=== PATIENT | female | born 1990 | race Caucasian/White ===

== ENCOUNTER 2016-12-25 11:45 | Inpatient (IN) | payer OTHER ==
[~2016-12-25] VITALS: Ht 162.6 cm; Wt 81.8 kg
[2016-12-25 13:42] LABS: HEMATOCRIT 40.1 % (36.0-46.0); MCH 28.1 PG (29.0-34.0); MCHC 32.7 G/DL (30.0-36.0); MCV 86.1 FL (83-99); MEAN PLAT.VOLUME 9.2 uM^3 (9.5-12.4); PLATELET COUNT 322 K/uL (156-360); RBC DIS.WIDTH-CV 12.2 % (11.8-14.6); RBC DIS.WIDTH-SD 38.5 % (39-53); RED BLOOD COUNT 4.66 M/uL (3.80-5.20); WHITE BLOOD COUNT 10.7 K/uL (4.1-10.2)
[2016-12-25 13:53] LABS: CHLORIDE 104 mEq/L (99-109); POTASSIUM 3.9 mEq/L (3.7-5.4); SODIUM 141 mEq/L (136-147)
[2016-12-25 13:56] LABS: GLUCOSE 91 mg/dL (70-99)
[2016-12-25 13:57] LABS: ANION GAP 12 MEQ/L (2-14)
[2016-12-25 13:58] LABS: TOTAL BILIRUBIN 0.4 mg/dL (0.0-1.0)
[2016-12-25 13:59] LABS: ALKALINE PHOSPHATASE 80 IU/L (3-129); GFR ESTIMATE (CALCULATED) > 59 mL/min/
[2016-12-25 14:00] LABS: UREA NITROGEN (BUN) 8 mg/dL (9-23)
[2016-12-25 14:08] LABS: QUANTITATIVE HCG < 4.0 MIU/ML
[2016-12-25] MEDS ORDERED: LITHIUM CARBON300 MG PO ×2 (16:22→16:26)
[2016-12-25] MEDS ORDERED: PROPRANOLOL HCL10 MG PO (16:24)
[2016-12-25] MEDS ORDERED: QUETIAPINE FUM400 MG PO (16:27)
[2016-12-25] MEDS ORDERED: QUETIAPINE FUMA25 MG PO (16:27)
[2016-12-25] MEDS ORDERED: MELATONIN5 M1 PO (16:28)
[2016-12-25] MEDS ORDERED: ONDANSETRON ODT4 MG PO (16:29)
[2016-12-25] MEDS ORDERED: PRAZOSIN HCL1 MG PO (16:30)
[2016-12-25] MEDS ORDERED: ERGOCALCIF50000 UNIT PO (16:31)
[2016-12-25] MEDS ORDERED: PROAIR HFA8.5 GM IH (16:32)
[2016-12-25] MEDS ORDERED: ZOLMITRIPTAN ODT5 MG PO (16:34)
[2016-12-25] MEDS ORDERED: TYLENOL EXTRA500 MG PO (16:35)
[2016-12-25] MEDS ORDERED: VITAMIN B12 100MCG PO (16:36)
[2016-12-25] MEDS ORDERED: VISINE TEARS DR15 ML OP (16:39)
[2016-12-25] MEDS ORDERED: ST. JOHN'S WOR300 MG PO (16:40)
[2016-12-25 16:54] LABS: ADD MIUA? YES; BILIRUBIN NEGATIVE; BLOOD SMALL; COLOR YELLOW ((YELLOW)); GLUCOSE (STRIP) NEGATIVE; KETONES 5; LEUKOCYTES NEGATIVE; NITRITE NEGATIVE; PROTEIN (STRIP) NEGATIVE; SPECIFIC GRAVITY 1.015 (1.000-1.030); UROBILINOGEN 0.2 MG/DL (0.2-1.0)
[2016-12-25 17:01] LABS: BACTERIA RARE /HPF; EPITHELIAL CELLS 1+ /HPF; MUCUS 1+ /LPF; RED BLOOD CELLS 0-5 /HPF (0-5); UCUL ADDED? YES
[2016-12-25 17:05] LABS: AMPHETAMINE NEGATIVE (500 ng/mL); BARBITURATES NEGATIVE (200 ng/mL); BENZODIAZEPINES NEGATIVE (150 ng/mL); COCAINE NEGATIVE (150 ng/mL); INTERNAL CONTROLS VALID? YES; METHADONE NEGATIVE (200 ng/mL); METHAMPHETAMINE NEGATIVE (500 ng/mL); OPIATES (MORPHINE) NEGATIVE (100 ng/mL); OXYCODONE NEGATIVE (100 ng/mL); PHENCYCLIDINE NEGATIVE (25 ng/mL); PROPOXYPHENE NEGATIVE (300 ng/mL); THC CANNABINOIDS NEGATIVE (50 ng/mL); TRICYCLIC ANTIDEPRESSANTS NEGATIVE (300 ng/mL)
[2016-12-25 17:57] VITALS: BP 130/83
[2016-12-26 07:51] VITALS: BP 104/57
[2016-12-26 16:15] VITALS: BP 100/60
[2016-12-27 07:25] VITALS: BP 113/57
[2016-12-27 15:38] VITALS: BP 109/60
[2016-12-28 07:41] VITALS: BP 113/64
[2016-12-28 15:36] VITALS: BP 100/58
[2016-12-29 07:49] VITALS: BP 113/61
[2016-12-29 16:09] VITALS: BP 111/57
[2016-12-30 07:50] VITALS: BP 117/60
[2016-12-30 15:38] VITALS: BP 100/53
[2016-12-31 07:48] VITALS: BP 104/66
[2016-12-31 15:50] VITALS: BP 109/64
[2017-01-01 07:47] VITALS: BP 109/55
[2017-01-01] MEDS ORDERED: PROPRANOLOL HCL10 MG PO (08:44)
[2017-01-01] MEDS ORDERED: LITHIUM CARBON300 MG PO ×2 (08:44)
[2017-01-01] MEDS ORDERED: CITALOPRAM HBR10 MG PO (08:44)
[2017-01-01] MEDS ORDERED: PROAIR HFA8.5 GM IH (08:44)
[2017-01-01] MEDS ORDERED: QUETIAPINE FUM400 MG PO (08:44)
[2017-01-01] MEDS ORDERED: PRAZOSIN HCL1 MG PO (08:44)
== END 2017-01-01 13:45 | disposition home or self-care (01) | DRG 885 ==
LOC: EME 11:45 → EDOF 15:45 → 1WEST 15:45 → ENRESERV 16:11 → 1WEST 17:42
PROVIDERS: Physician Assistant; Psychiatry & Neurology Psychiatry
DX: F25.0 Schizoaffective disorder, bipolar type (principal); R45.850 Homicidal ideations; R45.851 Suicidal ideations; M79.7 Fibromyalgia; F64.0 Transsexualism
CPT/HCPCS: 80053; 80178; 81003; 84702; 85027; 86141; 87077; 87086; 90839; 97150 GO; 97165 GO; 99202; 99281; 99285; J2405; J7030